=== PATIENT | female | born 1945 | race Caucasian/White ===

== ENCOUNTER → 2017-01-13 | Outpatient (CLI) | payer OTHER ==
[~2017-01-13] MED LIST: NS 100 ML IV 100 ML IV ONE
[2017-01-13 09:45] LABS: ALANINE AMINOTRANSFERASE 67 Units/L (12-78); ALBUMIN 3.9 g/dL (3.4-5.0); ALKALINE PHOSPHATASE 90 Units/L (46-116); ASPARTATE AMINO TRANSFERASE 33 Units/L (15-37); BLOOD UREA NITROGEN 11 mg/dL (7-18); CALCIUM 9.1 mg/dL (8.5-10.1); CARBON DIOXIDE 29.7 mmol/L (21-32); CHLORIDE 104 mmol/L (98-107); CREATININE 0.66 mg/dL (0.55-1.02); GLUCOSE 98 mg/dL (65-99); SODIUM 143 mmol/L (136-145); TOTAL PROTEIN 7.8 g/dL (6.4-8.2); eGFR BLACK RACES > 60 (>60); eGFR NON BLACK RACES > 60 (>60)
[2017-01-13 10:05] LABS: BASOPHILS # (AUTO) 0.1 X10^3/uL (0.0-0.1); BASOPHILS % (AUTO) 1.3 % (0.2-1.0); EOSINOPHILS # (AUTO) 0.3 x10^3/uL (0.0-0.2); EOSINOPHILS % (AUTO) 7.6 % (0.9-2.9); HEMATOCRIT 40.6 % (36.0-47.0); HEMOGLOBIN 13.3 g/dL (12.0-16.0); LYMPHOCYTES % (AUTO) 27.3 % (21.0-51.0); MEAN CORPUSCULAR HEMOGLOBIN 29.2 pg (27.0-34.0); MEAN CORPUSCULAR HGB CONC 32.8 g/dL (33.0-35.0); MEAN PLATELET VOLUME 8.5 fL (7.4-11.0); MONOCYTES # (AUTO) 0.4 x10^3/uL (0.3-0.8); MONOCYTES % (AUTO) 9.4 % (0.0-13.0); NEUTROPHILS % (AUTO) 54.4 % (42.0-75.0); PLATELET COUNT 177 X10^3/uL (150.0-450.0); RED BLOOD COUNT 4.56 X10^6/uL (3.5-5.4); WHITE BLOOD COUNT 3.7 X10^3/uL (3.6-10.0)
--- NOTE | 2017-01-13 13:22 | CT ---
HISTORY: History of colon cancer, acute chest wall pain Study: CT chest with contrast Comparison: None Technique: Multiple axial images of the chest were obtained from the thoracic inlet to the upper abd omen after the administration of IV contrast. Dose reduction techniques including Automated Exposur e Control (AEC) and adjustment of mA and kV were utilized. Findings: Prominent coronary artery calcifications are noted. Normal-sized heart. No pericardial effusion. The aorta appears normal in course and caliber. There are centrilobular emphysematous changes present. There is biapical scarring with 2 ground-glass nodular opacity seen at the right lung apex measuring 9 mm and 7 mm. There are mild clustered tree-in-bud opacity seen in the anterior right upper lobe a s well. Airways are patent. No pneumothorax or pleural effusion. The soft tissues and osseous structures appear intact. The visualized portions of the upper abdomen are grossly unremarkable. IMPRESSION: 1. Centrilobular emphysematous changes with biapical nodular scarring. There are 2 ground-glass nodu les in the right lung apex measuring 9 mm and 7 mm. Correlation with any prior CT imaging would be b eneficial to evaluate for stability. Otherwise followup imaging is recommended in 6 months. 2. Mild clustered tree-in-bud opacities seen in the anterior right upper lobe could reflect bronchio litis, correlate clinically. 3. Coronary artery calcifications. Reported By:
--- NOTE | 2017-01-13 13:29 | CT ---
HISTORY: History of colon cancer Study: CT abdomen and pelvis with and without contrast Comparison: 04/30/2016 Technique: Multiple axial images of the abdomen and pelvis were obtained with and without IV contrast. Oral co ntrast was administered. Dose reduction techniques including Automated Exposure Control (AEC) and ad justment of mA and kV were utilized. Findings: The visualized portions of the lung bases are unremarkable. The liver, spleen, pancreas, kidneys, a nd adrenal glands are unremarkable in their CT appearance. The gallbladder is normal. No free intraperitoneal air. No evidence of intestinal obstruction or inflammation. Oral contrast re aches the large bowel. There are postsurgical changes at the rectum from mass resection. No free flu id. Normal appendix. The soft tissues and osseous structures are unremarkable. Prominent atherosclerotic disease of the a ashley and branch vessels is noted. No pathologically enlarged lymph nodes are identified. There are b ilateral pars defects at L5 with associated anterolisthesis. IMPRESSION: 1. No acute findings in the abdomen or pelvis. 2. Surgical changes at the rectum likely related to history of colonic malignancy. 3. Prominent atherosclerotic disease. Reported By:
== END ==
LOC: RAD 09:14
PROVIDERS: ATTEND Internal Medicine Hematology & Oncology
DX: C19 Malignant neoplasm of rectosigmoid junction (principal); R07.89 Other chest pain
CPT/HCPCS: 36415; 71260; 74177; 80053; 82378; 85025; A4222

== ENCOUNTER → 2017-03-03 | Outpatient (CLI) | payer OTHER ==
--- NOTE | 2017-03-04 11:31 | RAD ---
HISTORY: History of colon cancer. Unsuccessful recent colonoscopy Study: Barium enema Comparison: CT abdomen and pelvis 01/13/2017 Technique: Multiple fluoroscopic and overhead images of the abdomen were obtained during the adminis tration of rectal barium and air insufflation. Findings: Senior [employer] radiograph is unremarkable. There is moderate stricturing at the rectosigmoid junction at the site of previous anastomosis, alth ough there was not significant delay in passage of the contrast to the cecum. However, there was dif ficulty in draining the barium after installation. Additionally, insufflation of air into the colon was significantly limited. There was difficulty passing the gas beyond the stricture and the majorit y of the gas passed through the anus instead. A few sigmoid diverticula were noted. No large obstructing colonic mass or filling defect was identi fied. At the conclusion of the examination, the patient was able to evacuate only a small amount of the co ntrast, resulting in significant contrast retention in the colon. The patient was advised to drink p lenty of fluids in order to stay hydrated and flush the contrast from the colon. Additionally, she w as told to contact the radiology department or primary physician if she is unable to have a bowel mo vement over the next few days. The total fluoroscopy time utilized was 6.9 minutes. IMPRESSION: 1. Significantly limited examination as above, without evidence for large obstructing mass or filli ng defect. There is stricturing at the rectosigmoid anastomosis. 2. Sigmoid diverticulosis Reported By:
== END ==
LOC: RAD 09:28
PROVIDERS: ATTEND Internal Medicine Gastroenterology
DX: Z85.038 Personal history of other malignant neoplasm of large intestine (principal); K57.30 Diverticulosis of large intestine without perforation or abscess without bleeding
CPT/HCPCS: 74270

== ENCOUNTER → 2017-05-10 | Outpatient (CLI) | payer OTHER ==
[2017-05-10 08:32] LABS: EOSINOPHILS # (AUTO) 0.2 x10^3/uL (0.0-0.2); EOSINOPHILS % (AUTO) 3.5 % (0.9-2.9); HEMATOCRIT 43.1 % (36.0-47.0); HEMOGLOBIN 14.6 g/dL (12.0-16.0); LYMPHOCYTES # (AUTO) 0.9 X10^3/uL (1.3-2.9); LYMPHOCYTES % (AUTO) 18.7 % (21.0-51.0); MEAN CORPUSCULAR HEMOGLOBIN 29.9 pg (27.0-34.0); MEAN CORPUSCULAR HGB CONC 33.9 g/dL (33.0-35.0); MEAN CORPUSCULAR VOLUME 88.1 fL (80.0-100.0); MEAN PLATELET VOLUME 8.4 fL (7.4-11.0); MONOCYTES # (AUTO) 0.4 x10^3/uL (0.3-0.8); MONOCYTES % (AUTO) 7.6 % (0.0-13.0); NEUTROPHILS # (AUTO) 3.3 x10^3/uL (2.2-4.8); NEUTROPHILS % (AUTO) 69.2 % (42.0-75.0); PLATELET COUNT 166 X10^3/uL (150.0-450.0); RED BLOOD COUNT 4.89 X10^6/uL (3.5-5.4); WHITE BLOOD COUNT 4.8 X10^3/uL (3.6-10.0)
[2017-05-10 08:41] LABS: ALANINE AMINOTRANSFERASE 66 Units/L (12-78); ALBUMIN 3.8 g/dL (3.4-5.0); ALKALINE PHOSPHATASE 93 Units/L (46-116); ASPARTATE AMINO TRANSFERASE 43 Units/L (15-37); BLOOD UREA NITROGEN 9 mg/dL (7-18); CALCIUM 9.1 mg/dL (8.5-10.1); CARBON DIOXIDE 27.7 mmol/L (21-32); CHLORIDE 106 mmol/L (98-107); CREATININE 0.68 mg/dL (0.55-1.02); GLUCOSE 106 mg/dL (65-99); SODIUM 140 mmol/L (136-145); TOTAL PROTEIN 7.6 g/dL (6.4-8.2); eGFR BLACK RACES > 60 (>60); eGFR NON BLACK RACES > 60 (>60)
== END ==
LOC: LAB 08:09
PROVIDERS: ATTEND Internal Medicine Hematology & Oncology
DX: C19 Malignant neoplasm of rectosigmoid junction (principal)
CPT/HCPCS: 36415; 80053; 82378; 85025

== ENCOUNTER → 2017-06-04 | Outpatient (CLI) | payer OTHER ==
[2017-06-04 08:43] LABS: BASOPHILS # (AUTO) 0.1 X10^3/uL (0.0-0.1); BASOPHILS % (AUTO) 2.8 % (0.2-1.0); EOSINOPHILS # (AUTO) 0.2 x10^3/uL (0.0-0.2); EOSINOPHILS % (AUTO) 6.1 % (0.9-2.9); HEMATOCRIT 41.1 % (36.0-47.0); LYMPHOCYTES # (AUTO) 0.9 X10^3/uL (1.3-2.9); LYMPHOCYTES % (AUTO) 25.5 % (21.0-51.0); MEAN CORPUSCULAR HEMOGLOBIN 30.5 pg (27.0-34.0); MEAN CORPUSCULAR HGB CONC 34.1 g/dL (33.0-35.0); MEAN CORPUSCULAR VOLUME 89.5 fL (80.0-100.0); MEAN PLATELET VOLUME 8.2 fL (7.4-11.0); MONOCYTES # (AUTO) 0.3 x10^3/uL (0.3-0.8); MONOCYTES % (AUTO) 7.1 % (0.0-13.0); NEUTROPHILS # (AUTO) 2.1 x10^3/uL (2.2-4.8); NEUTROPHILS % (AUTO) 58.5 % (42.0-75.0); PLATELET COUNT 149 X10^3/uL (150.0-450.0); RED BLOOD COUNT 4.59 X10^6/uL (3.5-5.4); RED CELL DISTRIBUTION WIDTH 13.9 % (11.6-16.5); WHITE BLOOD COUNT 3.6 X10^3/uL (3.6-10.0)
[2017-06-04 09:08] LABS: ALANINE AMINOTRANSFERASE 37 Units/L (12-78); ALBUMIN 3.6 g/dL (3.4-5.0); ALKALINE PHOSPHATASE 79 Units/L (46-116); ASPARTATE AMINO TRANSFERASE 22 Units/L (15-37); BLOOD UREA NITROGEN 9 mg/dL (7-18); CALCIUM 8.5 mg/dL (8.5-10.1); CARBON DIOXIDE 32.3 mmol/L (21-32); CHLORIDE 107 mmol/L (98-107); GLUCOSE 96 mg/dL (65-99); SODIUM 143 mmol/L (136-145); TOTAL PROTEIN 7.1 g/dL (6.4-8.2); eGFR BLACK RACES > 60 (>60); eGFR NON BLACK RACES > 60 (>60)
== END ==
LOC: LAB 08:18
PROVIDERS: ATTEND Nurse Practitioner Family
DX: C20 Malignant neoplasm of rectum (principal)
CPT/HCPCS: 36415; 80053; 82378; 85025

== ENCOUNTER → 2017-06-11 | Outpatient (CLI) | payer OTHER ==
--- NOTE | 2017-06-14 09:16 | CT ---
HISTORY: Rectal cancer, elevated CEA Study: CT chest with contrast Comparison: January 13, 2017 Technique: Axial post-contrast images with coronal and sagittal reformats. Dose reduction procedures were used with MA/kv adjusted for body size. Findings: Examination of the mediastinum demonstrated no evidence for enlarged mediastinal or hilar adenopathy. Nonenlarged mediastinal nodes are present. There are stable to decreased when compared with the prio r examination. No pleural effusions are identified. No chest wall or axillary abnormality is identifi ed. Those portions of the upper abdominal organs visualized were within normal limits with the except ion of hepatomegaly. Examination of the lung coello again demonstrated hyperinflation to be present. Stable pleural-parenchymal scarring is present in the left lung apex. Biapical blebs are present. No significant change is noted in the previously described 7 and 9 millimeter right apical pulmonary nod ules. Continued follow up is recommended with another examination in 6 months. Changes of paraseptal and mild centrilobular emphysema are present. Scattered subpleural tree-in-bud inflammatory changes a re present on the right 's stable. No new nodules, areas of consolidation, masses, peribronchial thic kening or bronchiectasis is identified. IMPRESSION: Stable right apical pulmonary nodules requiring continued follow in 6 more month COPD with centrilobular and paraseptal emphysematous changes, stable Reported By:
== END | disposition home or self-care (01) ==
LOC: RAD 08:27
PROVIDERS: ATTEND Nurse Practitioner Family
DX: C20 Malignant neoplasm of rectum (principal); R97.0 Elevated carcinoembryonic antigen [CEA]; J44.9 Chronic obstructive pulmonary disease, unspecified; R91.8 Other nonspecific abnormal finding of lung field
CPT/HCPCS: 71260; A4222

== ENCOUNTER → 2017-10-22 | Outpatient (CLI) | payer OTHER ==
[2017-10-22 10:14] LABS: BASOPHILS # (AUTO) 0.1 X10^3/uL (0.0-0.1); BASOPHILS % (AUTO) 1.2 % (0.2-1.0); EOSINOPHILS # (AUTO) 0.3 x10^3/uL (0.0-0.2); EOSINOPHILS % (AUTO) 5.1 % (0.9-2.9); HEMATOCRIT 43.2 % (36.0-47.0); HEMOGLOBIN 14.8 g/dL (12.0-16.0); LYMPHOCYTES # (AUTO) 1.2 X10^3/uL (1.3-2.9); LYMPHOCYTES % (AUTO) 22.3 % (21.0-51.0); MEAN CORPUSCULAR HEMOGLOBIN 31.2 pg (27.0-34.0); MEAN CORPUSCULAR HGB CONC 34.2 g/dL (33.0-35.0); MEAN CORPUSCULAR VOLUME 91.2 fL (80.0-100.0); MEAN PLATELET VOLUME 8.3 fL (7.4-11.0); MONOCYTES # (AUTO) 0.4 x10^3/uL (0.3-0.8); MONOCYTES % (AUTO) 7.3 % (0.0-13.0); NEUTROPHILS # (AUTO) 3.6 x10^3/uL (2.2-4.8); NEUTROPHILS % (AUTO) 64.1 % (42.0-75.0); PLATELET COUNT 173 X10^3/uL (150.0-450.0); RED BLOOD COUNT 4.74 X10^6/uL (3.5-5.4); RED CELL DISTRIBUTION WIDTH 13.4 % (11.6-16.5); WHITE BLOOD COUNT 5.5 X10^3/uL (3.6-10.0)
[2017-10-22 10:26] LABS: ALANINE AMINOTRANSFERASE 45 Units/L (12-78); ALBUMIN 4.1 g/dL (3.4-5.0); ALKALINE PHOSPHATASE 90 Units/L (46-116); ASPARTATE AMINO TRANSFERASE 28 Units/L (15-37); BLOOD UREA NITROGEN 10 mg/dL (7-18); CALCIUM 9.5 mg/dL (8.5-10.1); CHLORIDE 101 mmol/L (98-107); COR NA(FOR HYPERGLY) 140 mmol/L (136-145); CREATININE 0.61 mg/dL (0.55-1.02); SODIUM 140 mmol/L (136-145); TOTAL PROTEIN 8.2 g/dL (6.4-8.2); eGFR BLACK RACES > 60 (>60); eGFR NON BLACK RACES > 60 (>60)
== END ==
LOC: LAB 09:44
PROVIDERS: ATTEND Internal Medicine Hematology & Oncology
DX: C20 Malignant neoplasm of rectum (principal)
CPT/HCPCS: 36415; 80053; 82378; 85025

== ENCOUNTER → 2018-02-24 | Outpatient (CLI) | payer OTHER ==
[2018-02-24 10:43] LABS: CREATININE 0.74 mg/dL (0.55-1.02)
--- NOTE | 2018-02-24 13:19 | CT ---
Indication: Colon cancer Exam: CT chest, abdomen, and pelvis with contrast. Comparison: CT chest 06/11/[address] scan 06/12/2016 Technique: Axial spiral images were obtained from the clavicles through the pubic symphysis after adm inistration 100 cc Omnipaque 300 oral contrast. Automated does control was utilized. Findings: CT chest: The thyroid gland is heterogeneous and unchanged. The aorta is partially calcified and norm al caliber . The pulmonary arteries are well opacified and normal caliber . There are small lymph nod es along the AP window and pretracheal region with the largest at the nik measuring 1 cm which is unchanged. There is moderate irregular pleural thickening and scarring along the apices with bullous lesions extending into the upper lobes posteriorly. There are pleural-based, cavitary , pleural-based along the left apex medially and laterally measuring up to 1.4 cm which are unchanged . There are garduno bpleural 8-9 mm subpleural opacities along the right upper lobe posteriorly which are unchanged. Ther e are reticular nodular densities along the right upper and middle lobes laterally which are unchange d. No new nodules seen. No consolidation or effusion is seen. There is mild soft tissue density in th e subsegmental bronchi along the right lower lobe extending inferiorly which is more prominent. No ag gressive osseous lesion is seen. CT abdomen pelvis: The liver is mildly enlarged with no focal lesions seen. The gallbladder, pancreas , and bile ducts are unremarkable. The adrenals are normal . The kidneys are normal size function no rmally with no hydronephrosis or renal stones. The uterus is atrophic with no adnexal mass or free fl uid . The bladder is unremarkable. There are surgical sutures along the distal sigmoid region with no adenopathy or ascites and no bowel obstruction . The mesentery is unremarkable. There are moderate d egenerative changes along the lower lumbar spine with mild subluxation of L5 on S1 and bilateral pars defects at L5. Impression: Chronic obstructive lung changes with biapical pleural thickening and scarring and subpleural nodules and pleural-based cavitary lesions along the apices and upper lobes which are unchanged. Recommend f ollow-up to assure stability or PET scan correlation. Small reticular nodular densities scattered in the right lung which are unchanged and may represent o ld granulomatous disease with no new nodule identified and no acute infiltrate or effusion. Questionable mucous plugging in the bronchi to the right lower lobe, suggest short-term follow-up to assure resolution. Small lymph nodes in the mediastinum which are unchanged. Mild hepatomegaly with no evidence of metastatic disease in the abdomen or pelvis. Reported By:
== END | disposition home or self-care (01) | DRG 376 ==
LOC: RAD 10:07 → EDSTATUS 10:30
PROVIDERS: ATTEND Internal Medicine Hematology & Oncology
DX: C18.7 Malignant neoplasm of sigmoid colon (principal); J44.9 Chronic obstructive pulmonary disease, unspecified; R91.8 Other nonspecific abnormal finding of lung field; R16.0 Hepatomegaly, not elsewhere classified
CPT/HCPCS: 36415; 71260; 74177; 82565; 84520; A4222

== ENCOUNTER → 2018-03-01 | Outpatient (CLI) | payer OTHER ==
[2018-03-01 13:57] LABS: BASOPHILS # (AUTO) 0.1 X10^3/uL (0.0-0.1); BASOPHILS % (AUTO) 1.2 % (0.2-1.0); EOSINOPHILS # (AUTO) 0.2 x10^3/uL (0.0-0.2); EOSINOPHILS % (AUTO) 4.5 % (0.9-2.9); HEMATOCRIT 41.8 % (36.0-47.0); HEMOGLOBIN 14.4 g/dL (12.0-16.0); LYMPHOCYTES # (AUTO) 1.7 X10^3/uL (1.3-2.9); LYMPHOCYTES % (AUTO) 31.9 % (21.0-51.0); MEAN CORPUSCULAR HEMOGLOBIN 31.1 pg (27.0-34.0); MEAN CORPUSCULAR HGB CONC 34.4 g/dL (33.0-35.0); MEAN CORPUSCULAR VOLUME 90.5 fL (80.0-100.0); MEAN PLATELET VOLUME 8.3 fL (7.4-11.0); MONOCYTES # (AUTO) 0.3 x10^3/uL (0.3-0.8); MONOCYTES % (AUTO) 6.7 % (0.0-13.0); NEUTROPHILS # (AUTO) 2.9 x10^3/uL (2.2-4.8); NEUTROPHILS % (AUTO) 55.7 % (42.0-75.0); PLATELET COUNT 208 X10^3/uL (150.0-450.0); RED BLOOD COUNT 4.62 X10^6/uL (3.5-5.4); RED CELL DISTRIBUTION WIDTH 13.3 % (11.6-16.5); WHITE BLOOD COUNT 5.2 X10^3/uL (3.6-10.0)
[2018-03-01 13:58] LABS: ALANINE AMINOTRANSFERASE 35 Units/L (12-78); ALBUMIN 3.5 g/dL (3.4-5.0); ALKALINE PHOSPHATASE 77 Units/L (46-116); ASPARTATE AMINO TRANSFERASE 18 Units/L (15-37); BLOOD UREA NITROGEN 12 mg/dL (7-18); CALCIUM 8.4 mg/dL (8.5-10.1); CARBON DIOXIDE 30.6 mmol/L (21-32); CHLORIDE 104 mmol/L (98-107); COR NA(FOR HYPERGLY) 141 mmol/L (136-145); CREATININE 0.87 mg/dL (0.55-1.02); SODIUM 140 mmol/L (136-145); TOTAL PROTEIN 7.3 g/dL (6.4-8.2); eGFR BLACK RACES > 60 (>60); eGFR NON BLACK RACES > 60 (>60)
== END ==
LOC: LAB 13:30
PROVIDERS: ATTEND Internal Medicine Hematology & Oncology
DX: C18.7 Malignant neoplasm of sigmoid colon (principal); R97.0 Elevated carcinoembryonic antigen [CEA]
CPT/HCPCS: 36415; 80053; 82378; 85025